=== PATIENT | male | born 1980 | race Caucasian/White ===

== ENCOUNTER 2023-04-22 15:39 | Inpatient (IN) | payer OTHER, SELFPAY ==
[~2023-04-22 15:39] MED LIST: Iopamidol 370 76% 100 ML VIAL ONE
[2023-04-22] MEDS ORDERED: FLU VACC QS2023-24(6MOS UP)/PF 60 MCG/0.5 ML SYRINGE IM ONE (17:45)
[2023-04-22] MEDS ORDERED: Acetaminophen 325 MG TAB PO PRN (20:05)
[2023-04-22 20:38] LABS: #Monocytes 0.1 10x3/uL (0.0-1.1); #Neutrophils 9.7 10x3/uL (1.5-8.4); %Basophils 0.2 % (0.0-2.0); %Lymphocytes 5.5 % (18.0-47.0); %Monocytes 0.6 % (0.0-10.0); %Neutrophils 93.4 % (40.0-75.0); Hematocrit 43.1 % (38.8-50.0); Hemoglobin 14.2 g/dL (13.5-17.5); Mean Corpuscular HGB CONC 32.9 g/dL (32.0-36.0); Mean Corpuscular Hemoglobin 26.2 pg (27.0-33.0); Mean Corpuscular Volume 79.7 fl (81.2-95.1); Mean Platelet Volume 10.9 fl (7.4-10.4); Platelet Count 555 10x3/uL (150-450); RBC Distribution Width 14.5 % (11.5-14.5); Red Blood Cell (RBC) Count 5.41 10x6/uL (4.32-5.72); White Blood Cell (WBC) Count 10.3 10x3/uL (3.5-10.5)
[2023-04-22 20:49] LABS: Anion Gap 15 mmol/L (10-20); BUN (Urea Nitrogen) 16 mg/dL (8.9-20.6); Calc. Creatinine Clearance 92 mL/min (70-130); Calcium 11.5 mg/dL (7.8-10.44); Carbon Dioxide 23 mmol/L (22-29); Chloride 101 mmol/L (98-107); Estimated GFR 112; Glucose 151 mg/dL (70-105); Magnesium 1.4 mg/dL (1.6-2.6); Potassium 3.5 mmol/L (3.5-5.1); Sodium 135 mmol/L (136-145)
[2023-04-22] MEDS ORDERED: Dexamethasone 4 mg/ml Vial SLOW IVP SCH (21:00)
[2023-04-22 21:24] LABS: Legionella Urinary Ag Negative (Negative); Strep pneumo Urine Ag NEGATIVE (NEGATIVE)
[2023-04-22] MEDS: Fluconazole 100 MG TAB PO SCH (22:01)
[2023-04-22] MEDS: Sodium Chloride 0.9% 1,000 ML IV SCH (22:03)
[2023-04-22] MEDS: LevoFLOXacin 750 mg/D5W 750 MG in Premix 1 BAG IVPB SCH (22:04)
[2023-04-22] MEDS ORDERED: Piperacillin/Tazobactam 3.375 GM in Sodium Chloride 0.9% 100 ML IVPB SCH (23:00)
[2023-04-22] MEDS ORDERED: Mometasone/Formoterol 200/5 60 PUFF INH SCH (23:59)
[2023-04-22] MEDS ORDERED: Potassium Chloride 20 MEQ TAB PO SCH (23:59)
[2023-04-22] MEDS ORDERED: Magnesium 2 GM/50 ML(in water) 2 GM in Premix 1 BAG IVPB SCH (23:59)
[2023-04-23] MEDS ORDERED: Piperacillin/Tazobactam 3.375 GM in Sodium Chloride 0.9% 100 ML IVPB SCH (01:00)
[2023-04-23 01:56] LABS: Bilirubin Neg (Negative); Blood, Urine Negative (Negative); Glucose, Urine (Dipstick) Normal (Negative); Ketone, Urine Negative (Negative); Leukocyte 25 (Negative); Nitrite Negative (Negative); Protein, Urine (Dipstick) 30 mg/dl (Neg-Trace); Specific Gravity, Urine 1.025 (1.005-1.030)
[2023-04-23 02:04] LABS: Clarity Clear (Clear)
[2023-04-23 02:08] LABS: RBC/HPF 0-3 HPF (0-3); Squamous Epithelial 0-3 HPF (0-3); WBC/HPF 0-3 HPF (0-3)
[2023-04-23 02:09] LABS: Bacteria/HPF 1+ HPF (None Seen); Triple Phosphate Crystal 1+ HPF (None Seen)
[2023-04-23 03:55] LABS: #Monocytes 0.3 10x3/uL (0.0-1.1); #Neutrophils 8.2 10x3/uL (1.5-8.4); %Basophils 0.1 % (0.0-2.0); %Lymphocytes 7.4 % (18.0-47.0); %Monocytes 2.8 % (0.0-10.0); %Neutrophils 89.3 % (40.0-75.0); Hematocrit 39.4 % (38.8-50.0); Hemoglobin 13.5 g/dL (13.5-17.5); Mean Corpuscular HGB CONC 34.3 g/dL (32.0-36.0); Mean Corpuscular Hemoglobin 27.2 pg (27.0-33.0); Mean Corpuscular Volume 79.3 fl (81.2-95.1); Mean Platelet Volume 10.9 fl (7.4-10.4); Platelet Count 512 10x3/uL (150-450); RBC Distribution Width 14.2 % (11.5-14.5); Red Blood Cell (RBC) Count 4.97 10x6/uL (4.32-5.72); White Blood Cell (WBC) Count 9.2 10x3/uL (3.5-10.5)
[2023-04-23 04:00] LABS: Anion Gap 13 mmol/L (10-20); BUN (Urea Nitrogen) 17 mg/dL (8.9-20.6); Calc. Creatinine Clearance 95 mL/min (70-130); Calcium 10.7 mg/dL (7.8-10.44); Carbon Dioxide 25 mmol/L (22-29); Chloride 101 mmol/L (98-107); Estimated GFR 113; Glucose 126 mg/dL (70-105); Potassium 4.1 mmol/L (3.5-5.1); Sodium 135 mmol/L (136-145)
[2023-04-23] MEDS: Sodium Chloride 0.9% 1,000 ML IV SCH ×5 (04:24→17:24)
[2023-04-23] MEDS: Vancomycin 1 GM in Sodium Chloride 0.9% 250 ML 250 ML IVPB SCH ×2 (04:25→15:23)
[2023-04-23] MEDS: Piperacillin/Tazobactam 3.375 GM in Sodium Chloride 0.9% 100 ML IVPB SCH ×3 (04:25→20:04)
[2023-04-23] MEDS: Mometasone/Formoterol 200/5 60 PUFF INH SCH ×3 (07:58→20:25)
[2023-04-23] MEDS: Enoxaparin 30 MG (0.3 mL) SYRINGE SC SCH (08:19)
[2023-04-23] MEDS ORDERED: Gabapentin 100 MG CAP PO SCH (11:00)
[2023-04-23 11:41] LABS: Phosphorus 2.9 mg/dL (2.3-4.7)
[2023-04-23] MEDS: Clindamycin/D5W 900 MG in Premix 1 BAG IVPB SCH ×2 (12:47→17:23)
[2023-04-23] MEDS: Ventolin HFA Inhaler 60 PUFF INHALER INH SCH ×4 (15:57→23:25)
[2023-04-23] MEDS ORDERED: Sodium Chloride 0.9% 1,000 ML IV SCH (17:00)
[2023-04-23] MEDS: pyridOXINE 50 MG (B6) TAB PO SCH (20:05)
[2023-04-23] MEDS: Dexamethasone 4 mg/ml Vial SLOW IVP SCH (20:05)
[2023-04-23] MEDS: Folic Acid 1 MG TAB PO SCH (20:06)
[2023-04-23] MEDS: Fluconazole 100 MG TAB PO SCH (20:06)
[2023-04-23] MEDS: Cyanocobalamin (Vitamin B-12) 1,000 MCG TAB PO SCH (20:06)
[2023-04-23] MEDS: Multivit, Therapeutic 1 TAB PO SCH (20:06)
[2023-04-23] MEDS: Nystatin 500,000 UNITS/5 ML UDCUP SSW SCH (20:07)
[2023-04-23] MEDS: LevoFLOXacin 750 mg/D5W 750 MG in Premix 1 BAG IVPB SCH (20:07)
[2023-04-23] MEDS: Gabapentin 100 MG CAP PO SCH (20:17)
[2023-04-23] MEDS: Ventolin HFA Inhaler 60 PUFF INHALER INH PRN (20:45)
[2023-04-23] MEDS ORDERED: Dexamethasone 6 MG in Sodium Chloride 0.9% 50 ML IVPB SCH (21:00)
[2023-04-23] MEDS ORDERED: Dexamethasone 4 mg/ml Vial SLOW IVP SCH (21:00)
[2023-04-24] MEDS: Clindamycin/D5W 900 MG in Premix 1 BAG IVPB SCH ×3 (01:09→16:59)
[2023-04-24 02:44] LABS: Vancomycin, Trough 12.7 ug/mL
[2023-04-24 02:46] LABS: Magnesium 1.3 mg/dL (1.6-2.6); Phosphorus 2.7 mg/dL (2.3-4.7)
[2023-04-24 02:48] LABS: ALT (SGPT) 13 U/L (8-55); AST (SGOT) 31 U/L (5-34); Albumin 2.4 g/dL (3.5-5.0); Alkaline Phosphatase 71 U/L (40-110); Anion Gap 12 mmol/L (10-20); BUN (Urea Nitrogen) 19 mg/dL (8.9-20.6); Bilirubin, Total 0.3 mg/dL (0.2-1.2); Calc. Creatinine Clearance 91 mL/min (70-130); Calcium 10.1 mg/dL (7.8-10.44); Carbon Dioxide 24 mmol/L (22-29); Chloride 104 mmol/L (98-107); Estimated GFR 112; Globulin 2.8 g/dL (2.4-3.5); Glucose 142 mg/dL (70-105); Potassium 3.6 mmol/L (3.5-5.1); Protein, Total 5.2 g/dL (6.0-8.3); Sodium 136 mmol/L (136-145)
[2023-04-24 02:53] LABS: #Eosinphils 0.1 10x3/uL (0.0-0.5); #Monocytes 0.3 10x3/uL (0.0-1.1); #Neutrophils 13.6 10x3/uL (1.5-8.4); %Basophils 0.2 % (0.0-2.0); %Eosinophils 0.5 % (0.0-6.0); %Lymphocytes 3.3 % (18.0-47.0); %Monocytes 1.7 % (0.0-10.0); Hematocrit 37.5 % (38.8-50.0); Hemoglobin 12.4 g/dL (13.5-17.5); Mean Corpuscular HGB CONC 33.1 g/dL (32.0-36.0); Mean Corpuscular Hemoglobin 26.1 pg (27.0-33.0); Mean Corpuscular Volume 78.9 fl (81.2-95.1); Mean Platelet Volume 10.5 fl (7.4-10.4); Platelet Count 482 10x3/uL (150-450); RBC Distribution Width 14.6 % (11.5-14.5); Red Blood Cell (RBC) Count 4.75 10x6/uL (4.32-5.72); White Blood Cell (WBC) Count 14.5 10x3/uL (3.5-10.5)
[2023-04-24] MEDS: Ventolin HFA Inhaler 60 PUFF INHALER INH SCH ×6 (03:05→22:17)
[2023-04-24] MEDS: Sodium Chloride 0.9% 1,000 ML IV SCH ×3 (03:19→17:00)
[2023-04-24] MEDS: Ventolin HFA Inhaler 60 PUFF INHALER INH PRN (03:20)
[2023-04-24] MEDS: Vancomycin 1 GM in Sodium Chloride 0.9% 250 ML 250 ML IVPB SCH ×2 (03:21→14:11)
[2023-04-24] MEDS: Piperacillin/Tazobactam 3.375 GM in Sodium Chloride 0.9% 100 ML IVPB SCH ×2 (04:20→13:10)
[2023-04-24] MEDS ORDERED: Magnesium 2 GM/50 ML(in water) 2 GM in Premix 1 BAG IVPB SCH (04:30)
[2023-04-24] MEDS: Mometasone/Formoterol 200/5 60 PUFF INH SCH ×2 (07:54→19:04)
[2023-04-24] MEDS: Dexamethasone 4 mg/ml Vial SLOW IVP SCH ×2 (09:12→20:53)
[2023-04-24] MEDS: Enoxaparin 30 MG (0.3 mL) SYRINGE SC SCH (09:13)
[2023-04-24] MEDS: Gabapentin 100 MG CAP PO SCH ×2 (09:13→20:54)
[2023-04-24] MEDS: Nystatin 500,000 UNITS/5 ML UDCUP SSW SCH ×4 (09:14→20:55)
[2023-04-24 17:36] LABS: %CD4 (Helper/Inducer) 2.7 % (30.8-58.5); Absolute CD4 14 /uL (359-1519); Lymphocytes/Gated Cell Count 0.5 x10E3/uL (0.7-3.1); Total Lymphocyte 6 % (Not Estab.); WBC Total Count 9.5 x10E3/uL (3.4-10.8)
[2023-04-24] MEDS: Cyanocobalamin (Vitamin B-12) 1,000 MCG TAB PO SCH (20:52)
[2023-04-24] MEDS: Folic Acid 1 MG TAB PO SCH (20:52)
[2023-04-24] MEDS: Multivit, Therapeutic 1 TAB PO SCH (20:52)
[2023-04-24] MEDS: Fluconazole 100 MG TAB PO SCH (20:53)
[2023-04-24] MEDS: LevoFLOXacin 750 mg/D5W 750 MG in Premix 1 BAG IVPB SCH (20:54)
[2023-04-24] MEDS: pyridOXINE 50 MG (B6) TAB PO SCH (20:55)
[2023-04-25] MEDS: Clindamycin/D5W 900 MG in Premix 1 BAG IVPB SCH ×3 (00:54→16:43)
[2023-04-25] MEDS: Sodium Chloride 0.9% 1,000 ML IV SCH ×3 (01:49→16:43)
[2023-04-25] MEDS: Ventolin HFA Inhaler 60 PUFF INHALER INH SCH ×6 (02:20→22:53)
[2023-04-25] MEDS: Vancomycin 1 GM in Sodium Chloride 0.9% 250 ML 250 ML IVPB SCH (02:47)
[2023-04-25 03:36] LABS: #Monocytes 0.3 10x3/uL (0.0-1.1); #Neutrophils 14.2 10x3/uL (1.5-8.4); %Basophils 0.1 % (0.0-2.0); %Lymphocytes 3.9 % (18.0-47.0); %Monocytes 1.9 % (0.0-10.0); %Neutrophils 93.6 % (40.0-75.0); Hematocrit 40.2 % (38.8-50.0); Hemoglobin 13.2 g/dL (13.5-17.5); Mean Corpuscular HGB CONC 32.8 g/dL (32.0-36.0); Mean Corpuscular Hemoglobin 25.8 pg (27.0-33.0); Mean Corpuscular Volume 78.5 fl (81.2-95.1); Mean Platelet Volume 10.6 fl (7.4-10.4); Platelet Count 530 10x3/uL (150-450); RBC Distribution Width 14.6 % (11.5-14.5); Red Blood Cell (RBC) Count 5.12 10x6/uL (4.32-5.72); White Blood Cell (WBC) Count 15.2 10x3/uL (3.5-10.5)
[2023-04-25 03:45] LABS: Anion Gap 14 mmol/L (10-20); BUN (Urea Nitrogen) 18 mg/dL (8.9-20.6); Calc. Creatinine Clearance 92 mL/min (70-130); Calcium 10.3 mg/dL (7.8-10.44); Carbon Dioxide 22 mmol/L (22-29); Chloride 106 mmol/L (98-107); Estimated GFR 112; Glucose 126 mg/dL (70-105); Magnesium 1.3 mg/dL (1.6-2.6); Phosphorus 2.8 mg/dL (2.3-4.7); Potassium 3.3 mmol/L (3.5-5.1); Sodium 139 mmol/L (136-145)
[2023-04-25] MEDS: Mometasone/Formoterol 200/5 60 PUFF INH SCH ×2 (06:35→19:07)
[2023-04-25] MEDS ORDERED: Magnesium Sulfate 4 GM in Sodium Chloride 0.9% 250 ML 250 ML IVPB SCH (07:30)
[2023-04-25] MEDS: Potassium Bicarbonate/Cit Ac 20 MEQ TAB PO SCH ×3 (08:02→16:43)
[2023-04-25] MEDS: Dexamethasone 4 mg/ml Vial SLOW IVP SCH ×2 (08:06→20:45)
[2023-04-25] MEDS: Enoxaparin 30 MG (0.3 mL) SYRINGE SC SCH (08:06)
[2023-04-25] MEDS: Nystatin 500,000 UNITS/5 ML UDCUP SSW SCH ×4 (08:07→20:46)
[2023-04-25] MEDS: Gabapentin 100 MG CAP PO SCH ×2 (08:07→20:47)
[2023-04-25] MEDS: Magnesium 2 GM/50 ML(in water) 2 GM in Premix 1 BAG IVPB SCH ×2 (08:09→09:15)
[2023-04-25 14:33] LABS: Vancomycin, Trough 12.8 ug/mL
[2023-04-25] MEDS: pyridOXINE 50 MG (B6) TAB PO SCH (20:46)
[2023-04-25] MEDS: Multivit, Therapeutic 1 TAB PO SCH (20:46)
[2023-04-25] MEDS: Cyanocobalamin (Vitamin B-12) 1,000 MCG TAB PO SCH (20:46)
[2023-04-25] MEDS: Folic Acid 1 MG TAB PO SCH (20:46)
[2023-04-25] MEDS: LevoFLOXacin 750 mg/D5W 750 MG in Premix 1 BAG IVPB SCH (20:47)
[2023-04-25] MEDS: Fluconazole 100 MG TAB PO SCH (20:47)
[2023-04-26] MEDS: Clindamycin/D5W 900 MG in Premix 1 BAG IVPB SCH ×3 (00:13→17:10)
[2023-04-26] MEDS: Sodium Chloride 0.9% 1,000 ML IV SCH ×3 (00:14→17:10)
[2023-04-26] MEDS: Ventolin HFA Inhaler 60 PUFF INHALER INH SCH ×6 (02:50→23:28)
[2023-04-26 03:43] LABS: #Monocytes 0.3 10x3/uL (0.0-1.1); #Neutrophils 13.9 10x3/uL (1.5-8.4); %Basophils 0.1 % (0.0-2.0); %Lymphocytes 2.9 % (18.0-47.0); %Monocytes 1.8 % (0.0-10.0); %Neutrophils 94.7 % (40.0-75.0); Mean Corpuscular HGB CONC 33.3 g/dL (32.0-36.0); Mean Platelet Volume 10.6 fl (7.4-10.4); Platelet Count 488 10x3/uL (150-450); RBC Distribution Width 15.2 % (11.5-14.5); White Blood Cell (WBC) Count 14.7 10x3/uL (3.5-10.5)
[2023-04-26 04:00] LABS: Anion Gap 13 mmol/L (10-20); BUN (Urea Nitrogen) 17 mg/dL (8.9-20.6); Calc. Creatinine Clearance 113 mL/min (70-130); Calcium 9.9 mg/dL (7.8-10.44); Carbon Dioxide 24 mmol/L (22-29); Chloride 104 mmol/L (98-107); Estimated GFR 115; Glucose 132 mg/dL (70-105); Magnesium 1.4 mg/dL (1.6-2.6); Phosphorus 3.4 mg/dL (2.3-4.7); Potassium 3.3 mmol/L (3.5-5.1); Sodium 138 mmol/L (136-145)
[2023-04-26] MEDS: Mometasone/Formoterol 200/5 60 PUFF INH SCH ×2 (07:35→19:37)
[2023-04-26] MEDS: Gabapentin 100 MG CAP PO SCH ×2 (08:24→20:57)
[2023-04-26] MEDS: Nystatin 500,000 UNITS/5 ML UDCUP SSW SCH ×4 (08:25→20:54)
[2023-04-26] MEDS: Dexamethasone 4 mg/ml Vial SLOW IVP SCH ×2 (08:26→20:54)
[2023-04-26] MEDS: Enoxaparin 30 MG (0.3 mL) SYRINGE SC SCH (08:26)
[2023-04-26] MEDS: Magnesium 2 GM/50 ML(in water) 2 GM in Premix 1 BAG IVPB SCH ×2 (10:54→12:50)
[2023-04-26 15:14] LABS: QuantiFERON-TB Gold Plus Indeterminate (Negative)
[2023-04-26] MEDS ORDERED: Magnesium 2 GM/50 ML(in water) 2 GM in Premix 1 BAG IVPB SCH (16:00)
[2023-04-26 16:14] LABS: Coccidioides ABS (DID) Negative (Neg:<1:2); Histoplasma Yeast AB (CF) Negative (Neg:<1:2)
[2023-04-26 17:14] LABS: CMV DNA-PCR Test Positive < 200 IU/mL (Negative)
[2023-04-26] MEDS: Fluconazole 100 MG TAB PO SCH (20:54)
[2023-04-26] MEDS: Multivit, Therapeutic 1 TAB PO SCH (20:54)
[2023-04-26] MEDS: Cyanocobalamin (Vitamin B-12) 1,000 MCG TAB PO SCH (20:54)
[2023-04-26] MEDS: Folic Acid 1 MG TAB PO SCH (20:54)
[2023-04-26] MEDS: pyridOXINE 50 MG (B6) TAB PO SCH (20:54)
[2023-04-26] MEDS ORDERED: Potassium Bicarbonate/Cit Ac 20 MEQ TAB PO SCH (21:00)
[2023-04-27] MEDS: Sodium Chloride 0.9% 1,000 ML IV SCH ×3 (01:22→17:27)
[2023-04-27] MEDS: Clindamycin/D5W 900 MG in Premix 1 BAG IVPB SCH ×3 (01:22→17:27)
[2023-04-27] MEDS: Ventolin HFA Inhaler 60 PUFF INHALER INH SCH ×6 (02:34→22:50)
[2023-04-27 03:50] LABS: #Monocytes 0.2 10x3/uL (0.0-1.1); #Neutrophils 11.3 10x3/uL (1.5-8.4); %Basophils 0.1 % (0.0-2.0); %Eosinophils 0.1 % (0.0-6.0); %Lymphocytes 3.9 % (18.0-47.0); %Neutrophils 93.2 % (40.0-75.0); Hematocrit 41.2 % (38.8-50.0); Hemoglobin 13.6 g/dL (13.5-17.5); Mean Corpuscular Hemoglobin 26.3 pg (27.0-33.0); Mean Corpuscular Volume 79.7 fl (81.2-95.1); Mean Platelet Volume 10.8 fl (7.4-10.4); Platelet Count 499 10x3/uL (150-450); RBC Distribution Width 15.6 % (11.5-14.5); Red Blood Cell (RBC) Count 5.17 10x6/uL (4.32-5.72); White Blood Cell (WBC) Count 12.1 10x3/uL (3.5-10.5)
[2023-04-27 04:04] LABS: Anion Gap 13 mmol/L (10-20); BUN (Urea Nitrogen) 19 mg/dL (8.9-20.6); Calc. Creatinine Clearance 110 mL/min (70-130); Calcium 9.6 mg/dL (7.8-10.44); Carbon Dioxide 24 mmol/L (22-29); Chloride 105 mmol/L (98-107); Estimated GFR 114; Glucose 121 mg/dL (70-105); Magnesium 1.7 mg/dL (1.6-2.6); Phosphorus 3.4 mg/dL (2.3-4.7); Potassium 3.4 mmol/L (3.5-5.1); Sodium 139 mmol/L (136-145)
[2023-04-27] MEDS: Mometasone/Formoterol 200/5 60 PUFF INH SCH ×2 (06:40→20:14)
[2023-04-27] MEDS: Enoxaparin 30 MG (0.3 mL) SYRINGE SC SCH (07:59)
[2023-04-27] MEDS: Gabapentin 100 MG CAP PO SCH ×2 (08:00→21:50)
[2023-04-27] MEDS: Nystatin 500,000 UNITS/5 ML UDCUP SSW SCH ×4 (08:00→21:48)
[2023-04-27] MEDS: Dexamethasone 4 mg/ml Vial SLOW IVP SCH ×2 (08:01→21:57)
[2023-04-27] MEDS ORDERED: Magnesium 2 GM/50 ML(in water) 2 GM in Premix 1 BAG IVPB SCH (10:30)
[2023-04-27] MEDS: Potassium Bicarbonate/Cit Ac 20 MEQ TAB PO SCH ×2 (12:33→17:28)
[2023-04-27 12:37] LABS: G-6-PD,Quant 294 (127-427)
[2023-04-27] MEDS ORDERED: Loratadine 10 MG TAB PO SCH (21:00)
[2023-04-27] MEDS: Multivit, Therapeutic 1 TAB PO SCH (21:47)
[2023-04-27] MEDS: Folic Acid 1 MG TAB PO SCH (21:47)
[2023-04-27] MEDS: Famotidine 20 MG TAB PO SCH (21:47)
[2023-04-27] MEDS: Cyanocobalamin (Vitamin B-12) 1,000 MCG TAB PO SCH (21:48)
[2023-04-27] MEDS: pyridOXINE 50 MG (B6) TAB PO SCH (21:49)
[2023-04-27] MEDS: Fluconazole 100 MG TAB PO SCH (21:49)
[2023-04-28] MEDS: Clindamycin/D5W 900 MG in Premix 1 BAG IVPB SCH ×3 (00:37→16:31)
[2023-04-28] MEDS: Ventolin HFA Inhaler 60 PUFF INHALER INH SCH ×6 (02:55→22:44)
[2023-04-28 02:57] LABS: #Monocytes 0.4 10x3/uL (0.0-1.1); #Neutrophils 13.8 10x3/uL (1.5-8.4); %Basophils 0.1 % (0.0-2.0); %Eosinophils 0.3 % (0.0-6.0); %Lymphocytes 4.2 % (18.0-47.0); %Monocytes 2.4 % (0.0-10.0); %Neutrophils 92.3 % (40.0-75.0); Hematocrit 40.3 % (38.8-50.0); Hemoglobin 13.2 g/dL (13.5-17.5); Mean Corpuscular HGB CONC 32.8 g/dL (32.0-36.0); Mean Corpuscular Hemoglobin 25.9 pg (27.0-33.0); Mean Platelet Volume 10.8 fl (7.4-10.4); Platelet Count 484 10x3/uL (150-450); RBC Distribution Width 15.4 % (11.5-14.5); White Blood Cell (WBC) Count 14.9 10x3/uL (3.5-10.5)
[2023-04-28 04:20] LABS: Anion Gap 14 mmol/L (10-20); BUN (Urea Nitrogen) 21 mg/dL (8.9-20.6); Calc. Creatinine Clearance 114 mL/min (70-130); Calcium 10.4 mg/dL (7.8-10.44); Carbon Dioxide 22 mmol/L (22-29); Chloride 106 mmol/L (98-107); Estimated GFR 115; Glucose 120 mg/dL (70-105); Magnesium 1.3 mg/dL (1.6-2.6); Potassium 3.7 mmol/L (3.5-5.1); Sodium 138 mmol/L (136-145)
[2023-04-28] MEDS: Mometasone/Formoterol 200/5 60 PUFF INH SCH ×2 (06:50→19:20)
[2023-04-28] MEDS: Gabapentin 100 MG CAP PO SCH ×2 (08:39→20:39)
[2023-04-28] MEDS: Famotidine 20 MG TAB PO SCH ×2 (08:40→20:39)
[2023-04-28] MEDS: Enoxaparin 30 MG (0.3 mL) SYRINGE SC SCH (08:40)
[2023-04-28] MEDS: Dexamethasone 4 mg/ml Vial SLOW IVP SCH ×2 (08:40→20:38)
[2023-04-28] MEDS: Nystatin 500,000 UNITS/5 ML UDCUP SSW SCH ×4 (08:41→20:38)
[2023-04-28 13:28] LABS: Campy jejuni + coli by PCR Negative (Negative); STEC Shiga Toxin 1+2 Negative (Negative); Salmonella spp. by PCR Negative (Negative); Shigella spp + EIEC by PCR Negative (Negative)
[2023-04-28] MEDS: Sodium Chloride 0.9% 1,000 ML IV SCH (14:36)
[2023-04-28] MEDS ORDERED: SMX/TMP 800-160mg/20 ML UDCUP PO SCH ×6 (15:30→20:30)
[2023-04-28] MEDS: Fluconazole 100 MG TAB PO SCH (20:39)
[2023-04-28] MEDS: Cyanocobalamin (Vitamin B-12) 1,000 MCG TAB PO SCH (20:39)
[2023-04-28] MEDS: Folic Acid 1 MG TAB PO SCH (20:40)
[2023-04-28] MEDS: Multivit, Therapeutic 1 TAB PO SCH (20:40)
[2023-04-28] MEDS: pyridOXINE 50 MG (B6) TAB PO SCH (20:46)
[2023-04-28] MEDS: TRIMETHOPRIM IVPB SCH (22:40)
[2023-04-28] MEDS: WATER IVPB SCH (22:40)
[2023-04-28] MEDS: SULFAMETHOXAZOLE IVPB SCH (22:40)
[2023-04-28] MEDS: DEXTROSE 5% IVPB SCH (22:40)
[2023-04-29] MEDS: Clindamycin/D5W 900 MG in Premix 1 BAG IVPB SCH ×3 (01:24→16:03)
[2023-04-29] MEDS: Ventolin HFA Inhaler 60 PUFF INHALER INH SCH ×6 (02:44→22:32)
[2023-04-29] MEDS: SULFAMETHOXAZOLE IVPB SCH ×3 (05:44→22:04)
[2023-04-29] MEDS: DEXTROSE 5% IVPB SCH ×3 (05:44→22:04)
[2023-04-29] MEDS: WATER IVPB SCH ×3 (05:44→22:04)
[2023-04-29] MEDS: TRIMETHOPRIM IVPB SCH ×3 (05:44→22:04)
[2023-04-29] MEDS: Enoxaparin 40 MG (0.4 mL) SYRINGE SC SCH (08:12)
[2023-04-29] MEDS: Dexamethasone 4 mg/ml Vial SLOW IVP SCH ×2 (08:12→20:08)
[2023-04-29] MEDS: Famotidine 20 MG TAB PO SCH ×2 (08:12→20:11)
[2023-04-29] MEDS: Nystatin 500,000 UNITS/5 ML UDCUP SSW SCH ×4 (08:13→20:08)
[2023-04-29] MEDS: Gabapentin 100 MG CAP PO SCH ×2 (08:13→20:11)
[2023-04-29] MEDS: Mometasone/Formoterol 200/5 60 PUFF INH SCH ×2 (08:34→20:50)
[2023-04-29] MEDS: Sodium Chloride 0.9% 1,000 ML IV SCH (08:40)
[2023-04-29] MEDS: Magnesium 2 GM/50 ML(in water) 2 GM in Premix 1 BAG IVPB SCH ×2 (09:38→10:48)
[2023-04-29] MEDS ORDERED: Magnesium 2 GM/50 ML(in water) 2 GM in Premix 1 BAG IVPB SCH (17:00)
[2023-04-29] MEDS: Fluconazole 100 MG TAB PO SCH (20:10)
[2023-04-29] MEDS: Folic Acid 1 MG TAB PO SCH (20:11)
[2023-04-29] MEDS: Cyanocobalamin (Vitamin B-12) 1,000 MCG TAB PO SCH (20:11)
[2023-04-29] MEDS: pyridOXINE 50 MG (B6) TAB PO SCH (20:12)
[2023-04-29] MEDS: Multivit, Therapeutic 1 TAB PO SCH (20:12)
[2023-04-30] MEDS: Clindamycin/D5W 900 MG in Premix 1 BAG IVPB SCH ×2 (00:34→08:39)
[2023-04-30] MEDS: Ventolin HFA Inhaler 60 PUFF INHALER INH SCH ×6 (02:00→23:36)
[2023-04-30 03:28] LABS: #Monocytes 0.4 10x3/uL (0.0-1.1); #Neutrophils 12.2 10x3/uL (1.5-8.4); %Basophils 0.2 % (0.0-2.0); %Eosinophils 0.1 % (0.0-6.0); %Lymphocytes 4.5 % (18.0-47.0); %Neutrophils 90.9 % (40.0-75.0); Hematocrit 38.1 % (38.8-50.0); Hemoglobin 12.6 g/dL (13.5-17.5); Mean Corpuscular HGB CONC 33.1 g/dL (32.0-36.0); Mean Corpuscular Hemoglobin 25.8 pg (27.0-33.0); Mean Corpuscular Volume 78.1 fl (81.2-95.1); Mean Platelet Volume 10.4 fl (7.4-10.4); Platelet Count 517 10x3/uL (150-450); RBC Distribution Width 15.9 % (11.5-14.5); Red Blood Cell (RBC) Count 4.88 10x6/uL (4.32-5.72); White Blood Cell (WBC) Count 13.4 10x3/uL (3.5-10.5)
[2023-04-30 03:39] LABS: ALT (SGPT) 23 U/L (8-55); AST (SGOT) 27 U/L (5-34); Albumin 2.6 g/dL (3.5-5.0); Alkaline Phosphatase 77 U/L (40-110); Anion Gap 14 mmol/L (10-20); BUN (Urea Nitrogen) 24 mg/dL (8.9-20.6); Bilirubin, Total 0.2 mg/dL (0.2-1.2); Calc. Creatinine Clearance 102 mL/min (70-130); Calcium 9.9 mg/dL (7.8-10.44); Carbon Dioxide 21 mmol/L (22-29); Chloride 104 mmol/L (98-107); Estimated GFR 111; Globulin 2.8 g/dL (2.4-3.5); Glucose 122 mg/dL (70-105); Magnesium 1.6 mg/dL (1.6-2.6); Phosphorus 3.4 mg/dL (2.3-4.7); Potassium 4.2 mmol/L (3.5-5.1); Protein, Total 5.4 g/dL (6.0-8.3); Sodium 135 mmol/L (136-145)
[2023-04-30] MEDS: Sodium Chloride 0.9% 1,000 ML IV SCH (04:53)
[2023-04-30] MEDS: TRIMETHOPRIM IVPB SCH ×3 (05:08→22:30)
[2023-04-30] MEDS: WATER IVPB SCH ×3 (05:08→22:30)
[2023-04-30] MEDS: SULFAMETHOXAZOLE IVPB SCH ×3 (05:08→22:30)
[2023-04-30] MEDS: DEXTROSE 5% IVPB SCH ×3 (05:08→22:30)
[2023-04-30] MEDS: Mometasone/Formoterol 200/5 60 PUFF INH SCH ×2 (07:30→19:17)
[2023-04-30] MEDS: Famotidine 20 MG TAB PO SCH ×2 (08:31→20:15)
[2023-04-30] MEDS: Enoxaparin 40 MG (0.4 mL) SYRINGE SC SCH (08:31)
[2023-04-30] MEDS: Dexamethasone 4 mg/ml Vial SLOW IVP SCH ×2 (08:32→20:13)
[2023-04-30] MEDS: Nystatin 500,000 UNITS/5 ML UDCUP SSW SCH ×4 (08:38→20:13)
[2023-04-30] MEDS: Gabapentin 100 MG CAP PO SCH ×2 (08:38→20:14)
[2023-04-30] MEDS: Ondansetron PF 4 MG/2 ML Vial IVP PRN (17:01)
[2023-04-30] MEDS: Multivit, Therapeutic 1 TAB PO SCH (20:14)
[2023-04-30] MEDS: pyridOXINE 50 MG (B6) TAB PO SCH (20:14)
[2023-04-30] MEDS: Folic Acid 1 MG TAB PO SCH (20:15)
[2023-04-30] MEDS: Fluconazole 100 MG TAB PO SCH (20:15)
[2023-04-30] MEDS: Cyanocobalamin (Vitamin B-12) 1,000 MCG TAB PO SCH (20:15)
[2023-05-01] MEDS: Sodium Chloride 0.9% 1,000 ML IV SCH ×2 (00:02→20:37)
[2023-05-01] MEDS: Ventolin HFA Inhaler 60 PUFF INHALER INH SCH ×6 (02:50→21:56)
[2023-05-01 03:56] LABS: Anion Gap 13 mmol/L (10-20); BUN (Urea Nitrogen) 29 mg/dL (8.9-20.6); Calc. Creatinine Clearance 100 mL/min (70-130); Calcium 9.6 mg/dL (7.8-10.44); Carbon Dioxide 21 mmol/L (22-29); Chloride 101 mmol/L (98-107); Estimated GFR 110; Glucose 121 mg/dL (70-105); Magnesium 1.5 mg/dL (1.6-2.6); Potassium 4.6 mmol/L (3.5-5.1); Sodium 130 mmol/L (136-145)
[2023-05-01 03:57] LABS: #Eosinphils 0.1 10x3/uL (0.0-0.5); #Monocytes 0.5 10x3/uL (0.0-1.1); %Basophils 0.3 % (0.0-2.0); %Eosinophils 0.4 % (0.0-6.0); %Lymphocytes 5.7 % (18.0-47.0); %Monocytes 3.8 % (0.0-10.0); %Neutrophils 88.7 % (40.0-75.0); Hematocrit 39.2 % (38.8-50.0); Hemoglobin 13.3 g/dL (13.5-17.5); Mean Corpuscular HGB CONC 33.9 g/dL (32.0-36.0); Mean Corpuscular Hemoglobin 26.4 pg (27.0-33.0); Mean Corpuscular Volume 77.8 fl (81.2-95.1); Mean Platelet Volume 10.2 fl (7.4-10.4); Platelet Count 521 10x3/uL (150-450); RBC Distribution Width 16.1 % (11.5-14.5); Red Blood Cell (RBC) Count 5.04 10x6/uL (4.32-5.72); White Blood Cell (WBC) Count 12.4 10x3/uL (3.5-10.5)
[2023-05-01] MEDS ORDERED: Magnesium Sulfate/D5W 1 GM in Premix 1 BAG IVPB SCH (05:15)
[2023-05-01] MEDS: WATER IVPB SCH ×3 (05:39→22:36)
[2023-05-01] MEDS: DEXTROSE 5% IVPB SCH ×3 (05:39→22:36)
[2023-05-01] MEDS: TRIMETHOPRIM IVPB SCH ×3 (05:39→22:36)
[2023-05-01] MEDS: SULFAMETHOXAZOLE IVPB SCH ×3 (05:39→22:36)
[2023-05-01] MEDS: Mometasone/Formoterol 200/5 60 PUFF INH SCH ×2 (06:45→19:00)
[2023-05-01] MEDS: Ondansetron PF 4 MG/2 ML Vial IVP PRN ×2 (08:01→13:02)
[2023-05-01] MEDS: Dexamethasone 4 mg/ml Vial SLOW IVP SCH ×2 (08:12→20:35)
[2023-05-01] MEDS: Gabapentin 100 MG CAP PO SCH ×2 (08:13→20:36)
[2023-05-01] MEDS: Famotidine 20 MG TAB PO SCH ×2 (08:13→20:36)
[2023-05-01] MEDS: Enoxaparin 40 MG (0.4 mL) SYRINGE SC SCH (08:13)
[2023-05-01] MEDS: Nystatin 500,000 UNITS/5 ML UDCUP SSW SCH ×4 (08:13→20:37)
[2023-05-01 13:15] LABS: Reference Lab Name LABCORP
[2023-05-01] MEDS: Cyanocobalamin (Vitamin B-12) 1,000 MCG TAB PO SCH (20:35)
[2023-05-01] MEDS: Fluconazole 100 MG TAB PO SCH (20:36)
[2023-05-01] MEDS: Folic Acid 1 MG TAB PO SCH (20:36)
[2023-05-01] MEDS: Multivit, Therapeutic 1 TAB PO SCH (20:36)
[2023-05-01] MEDS: pyridOXINE 50 MG (B6) TAB PO SCH (20:37)
[2023-05-02] MEDS: Ventolin HFA Inhaler 60 PUFF INHALER INH SCH ×6 (02:49→22:34)
[2023-05-02] MEDS: TRIMETHOPRIM IVPB SCH ×3 (05:31→22:07)
[2023-05-02] MEDS: WATER IVPB SCH ×3 (05:31→22:07)
[2023-05-02] MEDS: DEXTROSE 5% IVPB SCH ×3 (05:31→22:07)
[2023-05-02] MEDS: SULFAMETHOXAZOLE IVPB SCH ×3 (05:31→22:07)
[2023-05-02] MEDS: Mometasone/Formoterol 200/5 60 PUFF INH SCH ×2 (07:26→19:29)
[2023-05-02] MEDS: Nystatin 500,000 UNITS/5 ML UDCUP SSW SCH ×4 (08:24→20:20)
[2023-05-02] MEDS: Enoxaparin 40 MG (0.4 mL) SYRINGE SC SCH (08:24)
[2023-05-02] MEDS: Dexamethasone 4 mg/ml Vial SLOW IVP SCH (08:25)
[2023-05-02] MEDS: Gabapentin 100 MG CAP PO SCH ×2 (08:25→20:21)
[2023-05-02] MEDS: Famotidine 20 MG TAB PO SCH ×2 (08:25→20:21)
[2023-05-02] MEDS: Ondansetron PF 4 MG/2 ML Vial IVP PRN ×2 (10:26→16:33)
[2023-05-02] MEDS: Sodium Chloride 0.9% 1,000 ML IV SCH (16:34)
[2023-05-02] MEDS: Cyanocobalamin (Vitamin B-12) 1,000 MCG TAB PO SCH (20:21)
[2023-05-02] MEDS: Fluconazole 100 MG TAB PO SCH (20:21)
[2023-05-02] MEDS: predniSONE 20 MG TAB PO SCH (20:21)
[2023-05-02] MEDS: Multivit, Therapeutic 1 TAB PO SCH (20:21)
[2023-05-02] MEDS: Folic Acid 1 MG TAB PO SCH (20:21)
[2023-05-02] MEDS: pyridOXINE 50 MG (B6) TAB PO SCH (20:21)
[2023-05-03] MEDS: Ventolin HFA Inhaler 60 PUFF INHALER INH SCH ×6 (02:46→23:00)
[2023-05-03 04:40] LABS: Anion Gap 15 mmol/L (10-20); BUN (Urea Nitrogen) 35 mg/dL (8.9-20.6); Calc. Creatinine Clearance 80 mL/min (70-130); Calcium 9.3 mg/dL (7.8-10.44); Carbon Dioxide 18 mmol/L (22-29); Chloride 98 mmol/L (98-107); Estimated GFR 94; Glucose 127 mg/dL (70-105); Potassium 4.9 mmol/L (3.5-5.1); Sodium 126 mmol/L (136-145)
[2023-05-03 04:42] LABS: #Basophils 0.1 10x3/uL (0.0-0.2); #Eosinphils 0.1 10x3/uL (0.0-0.5); #Monocytes 0.4 10x3/uL (0.0-1.1); #Neutrophils 14.8 10x3/uL (1.5-8.4); %Basophils 0.3 % (0.0-2.0); %Eosinophils 0.7 % (0.0-6.0); %Lymphocytes 4.4 % (18.0-47.0); %Monocytes 2.5 % (0.0-10.0); %Neutrophils 91.1 % (40.0-75.0); Hematocrit 40.2 % (38.8-50.0); Hemoglobin 13.6 g/dL (13.5-17.5); Mean Corpuscular HGB CONC 33.8 g/dL (32.0-36.0); Mean Corpuscular Volume 76.9 fl (81.2-95.1); Mean Platelet Volume 9.8 fl (7.4-10.4); Platelet Count 572 10x3/uL (150-450); RBC Distribution Width 15.9 % (11.5-14.5); Red Blood Cell (RBC) Count 5.23 10x6/uL (4.32-5.72); White Blood Cell (WBC) Count 16.2 10x3/uL (3.5-10.5)
[2023-05-03] MEDS: TRIMETHOPRIM IVPB SCH ×3 (05:00→20:57)
[2023-05-03] MEDS: WATER IVPB SCH ×3 (05:00→20:57)
[2023-05-03] MEDS: SULFAMETHOXAZOLE IVPB SCH ×3 (05:00→20:57)
[2023-05-03] MEDS: DEXTROSE 5% IVPB SCH ×3 (05:00→20:57)
[2023-05-03] MEDS: Mometasone/Formoterol 200/5 60 PUFF INH SCH ×2 (07:44→19:47)
[2023-05-03] MEDS: Gabapentin 100 MG CAP PO SCH ×2 (09:33→20:40)
[2023-05-03] MEDS: Famotidine 20 MG TAB PO SCH ×2 (09:34→20:39)
[2023-05-03] MEDS: Nystatin 500,000 UNITS/5 ML UDCUP SSW SCH ×4 (09:35→20:39)
[2023-05-03] MEDS: predniSONE 20 MG TAB PO SCH ×2 (09:35→20:40)
[2023-05-03] MEDS: Enoxaparin 40 MG (0.4 mL) SYRINGE SC SCH (09:35)
[2023-05-03] MEDS: Sodium Chloride 0.9% 1,000 ML IV SCH (12:14)
[2023-05-03] MEDS ORDERED: Magnesium 2 GM/50 ML(in water) 2 GM in Premix 1 BAG IVPB SCH (18:15)
[2023-05-03] MEDS: pyridOXINE 50 MG (B6) TAB PO SCH (20:40)
[2023-05-03] MEDS: Folic Acid 1 MG TAB PO SCH (20:40)
[2023-05-03] MEDS: Multivit, Therapeutic 1 TAB PO SCH (20:40)
[2023-05-03] MEDS: Cyanocobalamin (Vitamin B-12) 1,000 MCG TAB PO SCH (20:40)
[2023-05-03] MEDS: Ondansetron PF 4 MG/2 ML Vial IVP PRN (20:53)
[2023-05-04] MEDS: Ventolin HFA Inhaler 60 PUFF INHALER INH SCH ×6 (02:22→22:50)
[2023-05-04 05:03] LABS: #Basophils 0.1 10x3/uL (0.0-0.2); #Monocytes 0.3 10x3/uL (0.0-1.1); #Neutrophils 13.1 10x3/uL (1.5-8.4); %Basophils 0.4 % (0.0-2.0); %Eosinophils 0.1 % (0.0-6.0); %Lymphocytes 3.7 % (18.0-47.0); %Monocytes 1.8 % (0.0-10.0); %Neutrophils 92.8 % (40.0-75.0); Hematocrit 39.4 % (38.8-50.0); Hemoglobin 13.5 g/dL (13.5-17.5); Mean Corpuscular HGB CONC 34.3 g/dL (32.0-36.0); Mean Corpuscular Hemoglobin 26.6 pg (27.0-33.0); Mean Corpuscular Volume 77.6 fl (81.2-95.1); Mean Platelet Volume 9.9 fl (7.4-10.4); Platelet Count 517 10x3/uL (150-450); RBC Distribution Width 15.8 % (11.5-14.5); Red Blood Cell (RBC) Count 5.08 10x6/uL (4.32-5.72); White Blood Cell (WBC) Count 14.2 10x3/uL (3.5-10.5)
[2023-05-04] MEDS: DEXTROSE 5% IVPB SCH ×3 (05:08→21:42)
[2023-05-04] MEDS: SULFAMETHOXAZOLE IVPB SCH ×3 (05:08→21:42)
[2023-05-04] MEDS: WATER IVPB SCH ×3 (05:08→21:42)
[2023-05-04] MEDS: TRIMETHOPRIM IVPB SCH ×3 (05:08→21:42)
[2023-05-04 05:13] LABS: Anion Gap 13 mmol/L (10-20); BUN (Urea Nitrogen) 31 mg/dL (8.9-20.6); Calc. Creatinine Clearance 86 mL/min (70-130); Calcium 9.1 mg/dL (7.8-10.44); Carbon Dioxide 20 mmol/L (22-29); Chloride 97 mmol/L (98-107); Estimated GFR 102; Glucose 102 mg/dL (70-105); Potassium 4.8 mmol/L (3.5-5.1); Sodium 125 mmol/L (136-145)
[2023-05-04] MEDS: Mometasone/Formoterol 200/5 60 PUFF INH SCH ×2 (07:04→20:10)
[2023-05-04] MEDS: Enoxaparin 40 MG (0.4 mL) SYRINGE SC SCH (07:43)
[2023-05-04] MEDS: predniSONE 20 MG TAB PO SCH ×2 (07:44→20:20)
[2023-05-04] MEDS: Famotidine 20 MG TAB PO SCH ×2 (07:44→20:20)
[2023-05-04] MEDS: Gabapentin 100 MG CAP PO SCH ×2 (07:44→20:20)
[2023-05-04] MEDS: Nystatin 500,000 UNITS/5 ML UDCUP SSW SCH ×4 (07:44→20:20)
[2023-05-04] MEDS ORDERED: Sodium Chloride 1 GM TAB PO SCH (10:00)
[2023-05-04] MEDS: Sodium Chloride 1 GM TAB PO SCH ×2 (16:39→20:20)
[2023-05-04] MEDS: Cyanocobalamin (Vitamin B-12) 1,000 MCG TAB PO SCH (20:20)
[2023-05-04] MEDS: Multivit, Therapeutic 1 TAB PO SCH (20:20)
[2023-05-04] MEDS: Folic Acid 1 MG TAB PO SCH (20:20)
[2023-05-04] MEDS: pyridOXINE 50 MG (B6) TAB PO SCH (20:20)
[2023-05-04 21:08] LABS: LOG10 HIV-1 RNA 4.324 (.)
[2023-05-05] MEDS ORDERED: diphenhydrAMINE 25 MG CAP PO SCH (00:45)
[2023-05-05] MEDS: Benzonatate 100 MG CAP PO PRN (00:48)
[2023-05-05] MEDS: Ventolin HFA Inhaler 60 PUFF INHALER INH SCH ×6 (03:05→23:08)
[2023-05-05] MEDS: TRIMETHOPRIM IVPB SCH ×3 (05:03→21:09)
[2023-05-05] MEDS: WATER IVPB SCH ×3 (05:03→21:09)
[2023-05-05] MEDS: SULFAMETHOXAZOLE IVPB SCH ×3 (05:03→21:09)
[2023-05-05] MEDS: DEXTROSE 5% IVPB SCH ×3 (05:03→21:09)
[2023-05-05 06:14] LABS: #Monocytes 0.2 10x3/uL (0.0-1.1); #Neutrophils 12.8 10x3/uL (1.5-8.4); %Basophils 0.2 % (0.0-2.0); %Eosinophils 0.2 % (0.0-6.0); %Lymphocytes 4.3 % (18.0-47.0); %Monocytes 1.4 % (0.0-10.0); %Neutrophils 92.7 % (40.0-75.0); Hematocrit 37.3 % (38.8-50.0); Hemoglobin 12.7 g/dL (13.5-17.5); Mean Corpuscular Hemoglobin 26.5 pg (27.0-33.0); Mean Corpuscular Volume 77.9 fl (81.2-95.1); Mean Platelet Volume 10.3 fl (7.4-10.4); Platelet Count 494 10x3/uL (150-450); RBC Distribution Width 15.9 % (11.5-14.5); Red Blood Cell (RBC) Count 4.79 10x6/uL (4.32-5.72); White Blood Cell (WBC) Count 13.8 10x3/uL (3.5-10.5)
[2023-05-05 06:26] LABS: Anion Gap 12 mmol/L (10-20); BUN (Urea Nitrogen) 26 mg/dL (8.9-20.6); Calc. Creatinine Clearance 96 mL/min (70-130); Calcium 9.3 mg/dL (7.8-10.44); Carbon Dioxide 21 mmol/L (22-29); Chloride 97 mmol/L (98-107); Estimated GFR 111; Glucose 88 mg/dL (70-105); Magnesium 1.3 mg/dL (1.6-2.6); Potassium 4.9 mmol/L (3.5-5.1); Sodium 125 mmol/L (136-145)
[2023-05-05] MEDS: Mometasone/Formoterol 200/5 60 PUFF INH SCH ×2 (07:45→18:45)
[2023-05-05] MEDS: Gabapentin 100 MG CAP PO SCH ×2 (07:54→21:06)
[2023-05-05] MEDS: Sodium Chloride 1 GM TAB PO SCH ×3 (07:55→21:08)
[2023-05-05] MEDS: Enoxaparin 40 MG (0.4 mL) SYRINGE SC SCH (07:55)
[2023-05-05] MEDS: Famotidine 20 MG TAB PO SCH ×2 (07:55→21:08)
[2023-05-05] MEDS: predniSONE 20 MG TAB PO SCH ×2 (07:55→21:08)
[2023-05-05] MEDS: Nystatin 500,000 UNITS/5 ML UDCUP SSW SCH ×4 (08:43→21:06)
[2023-05-05] MEDS ORDERED: predniSONE 20 MG TAB PO SCH (10:45)
[2023-05-05] MEDS: Magnesium 2 GM/50 ML(in water) 2 GM in Premix 1 BAG IVPB SCH ×3 (11:11→14:02)
[2023-05-05] MEDS ORDERED: Emtricitabine/Tenofovir 200-300 MG TAB PO SCH (12:00)
[2023-05-05] MEDS ORDERED: Lopinavir/Ritonavir 200-50mg TAB PO SCH (12:00)
[2023-05-05] MEDS: Ondansetron PF 4 MG/2 ML Vial IVP PRN (12:47)
[2023-05-05 20:06] LABS: Potassium, Urine 31.1 mmol/L
[2023-05-05] MEDS: Folic Acid 1 MG TAB PO SCH (21:06)
[2023-05-05] MEDS: Cyanocobalamin (Vitamin B-12) 1,000 MCG TAB PO SCH (21:08)
[2023-05-05] MEDS: Multivit, Therapeutic 1 TAB PO SCH (21:08)
[2023-05-05] MEDS: pyridOXINE 50 MG (B6) TAB PO SCH (21:08)
[2023-05-05] MEDS: Lopinavir/Ritonavir 200-50mg TAB PO SCH (21:09)
[2023-05-06] MEDS: Ventolin HFA Inhaler 60 PUFF INHALER INH SCH ×6 (03:26→22:51)
[2023-05-06] MEDS: SULFAMETHOXAZOLE IVPB SCH ×3 (05:17→21:28)
[2023-05-06] MEDS: DEXTROSE 5% IVPB SCH ×3 (05:17→21:28)
[2023-05-06] MEDS: WATER IVPB SCH ×3 (05:17→21:28)
[2023-05-06] MEDS: TRIMETHOPRIM IVPB SCH ×3 (05:17→21:28)
[2023-05-06] MEDS: Mometasone/Formoterol 200/5 60 PUFF INH SCH ×2 (07:01→18:56)
[2023-05-06] MEDS: Famotidine 20 MG TAB PO SCH ×2 (07:35→20:02)
[2023-05-06] MEDS: Lopinavir/Ritonavir 200-50mg TAB PO SCH ×2 (07:35→21:29)
[2023-05-06] MEDS: predniSONE 20 MG TAB PO SCH ×2 (07:35→20:02)
[2023-05-06] MEDS: Emtricitabine/Tenofovir 200-300 MG TAB PO SCH (07:35)
[2023-05-06] MEDS: Enoxaparin 40 MG (0.4 mL) SYRINGE SC SCH (07:36)
[2023-05-06] MEDS: Sodium Chloride 1 GM TAB PO SCH ×3 (07:36→20:03)
[2023-05-06] MEDS: Nystatin 500,000 UNITS/5 ML UDCUP SSW SCH ×4 (08:45→20:02)
[2023-05-06] MEDS: Gabapentin 100 MG CAP PO SCH ×2 (08:45→20:03)
[2023-05-06 09:31] LABS: #Monocytes 0.2 10x3/uL (0.0-1.1); #Neutrophils 8.5 10x3/uL (1.5-8.4); %Basophils 0.2 % (0.0-2.0); %Lymphocytes 5.2 % (18.0-47.0); %Monocytes 2.6 % (0.0-10.0); %Neutrophils 90.7 % (40.0-75.0); Hematocrit 35.3 % (38.8-50.0); Hemoglobin 12.2 g/dL (13.5-17.5); Mean Corpuscular HGB CONC 34.6 g/dL (32.0-36.0); Mean Corpuscular Hemoglobin 26.9 pg (27.0-33.0); Mean Corpuscular Volume 77.9 fl (81.2-95.1); Mean Platelet Volume 9.7 fl (7.4-10.4); Platelet Count 472 10x3/uL (150-450); RBC Distribution Width 15.9 % (11.5-14.5); Red Blood Cell (RBC) Count 4.53 10x6/uL (4.32-5.72); White Blood Cell (WBC) Count 9.4 10x3/uL (3.5-10.5)
[2023-05-06 09:59] LABS: Phosphorus 3.1 mg/dL (2.3-4.7)
[2023-05-06 10:01] LABS: Anion Gap 13 mmol/L (10-20); BUN (Urea Nitrogen) 25 mg/dL (8.9-20.6); Calc. Creatinine Clearance 94 mL/min (70-130); Calcium 8.7 mg/dL (7.8-10.44); Carbon Dioxide 21 mmol/L (22-29); Chloride 96 mmol/L (98-107); Estimated GFR 110; Glucose 123 mg/dL (70-105); Magnesium 1.6 mg/dL (1.6-2.6); Sodium 126 mmol/L (136-145)
[2023-05-06 10:25] LABS: Reference Lab Name LABCORP
[2023-05-06] MEDS: Multivit, Therapeutic 1 TAB PO SCH (20:02)
[2023-05-06] MEDS: Folic Acid 1 MG TAB PO SCH (20:02)
[2023-05-06] MEDS: Cyanocobalamin (Vitamin B-12) 1,000 MCG TAB PO SCH (20:03)
[2023-05-06] MEDS: pyridOXINE 50 MG (B6) TAB PO SCH (20:03)
[2023-05-07] MEDS: Ventolin HFA Inhaler 60 PUFF INHALER INH SCH ×6 (02:10→23:30)
[2023-05-07] MEDS: Benzonatate 100 MG CAP PO PRN (03:26)
[2023-05-07 04:56] LABS: #Monocytes 0.4 10x3/uL (0.0-1.1); #Neutrophils 11.9 10x3/uL (1.5-8.4); %Basophils 0.2 % (0.0-2.0); %Eosinophils 0.2 % (0.0-6.0); %Lymphocytes 3.2 % (18.0-47.0); %Monocytes 2.9 % (0.0-10.0); %Neutrophils 92.3 % (40.0-75.0); Hematocrit 36.7 % (38.8-50.0); Hemoglobin 12.8 g/dL (13.5-17.5); Mean Corpuscular HGB CONC 34.9 g/dL (32.0-36.0); Mean Corpuscular Hemoglobin 27.1 pg (27.0-33.0); Mean Corpuscular Volume 77.6 fl (81.2-95.1); Mean Platelet Volume 9.3 fl (7.4-10.4); Platelet Count 512 10x3/uL (150-450); Red Blood Cell (RBC) Count 4.73 10x6/uL (4.32-5.72); White Blood Cell (WBC) Count 12.9 10x3/uL (3.5-10.5)
[2023-05-07 05:06] LABS: Phosphorus 2.9 mg/dL (2.3-4.7)
[2023-05-07 05:09] LABS: Anion Gap 13 mmol/L (10-20); BUN (Urea Nitrogen) 27 mg/dL (8.9-20.6); CRP (Inflammatory) Less than 0.50 mg/dL (= or < 0.5); Calc. Creatinine Clearance 96 mL/min (70-130); Carbon Dioxide 21 mmol/L (22-29); Chloride 98 mmol/L (98-107); Estimated GFR 111; Glucose 98 mg/dL (70-105); Magnesium 1.4 mg/dL (1.6-2.6); Potassium 4.3 mmol/L (3.5-5.1); Sodium 128 mmol/L (136-145)
[2023-05-07] MEDS: SULFAMETHOXAZOLE IVPB SCH ×3 (06:47→22:07)
[2023-05-07] MEDS: DEXTROSE 5% IVPB SCH ×3 (06:47→22:07)
[2023-05-07] MEDS: WATER IVPB SCH ×3 (06:47→22:07)
[2023-05-07] MEDS: TRIMETHOPRIM IVPB SCH ×3 (06:47→22:07)
[2023-05-07] MEDS: Mometasone/Formoterol 200/5 60 PUFF INH SCH ×2 (06:55→20:25)
[2023-05-07] MEDS: Nystatin 500,000 UNITS/5 ML UDCUP SSW SCH ×4 (08:58→20:40)
[2023-05-07] MEDS: Enoxaparin 40 MG (0.4 mL) SYRINGE SC SCH (08:58)
[2023-05-07] MEDS: predniSONE 20 MG TAB PO SCH ×2 (08:58→20:41)
[2023-05-07] MEDS: Famotidine 20 MG TAB PO SCH ×2 (08:58→20:41)
[2023-05-07] MEDS: Sodium Chloride 1 GM TAB PO SCH ×3 (08:58→20:42)
[2023-05-07] MEDS: Gabapentin 100 MG CAP PO SCH ×2 (08:58→20:40)
[2023-05-07] MEDS: Lopinavir/Ritonavir 200-50mg TAB PO SCH ×2 (08:59→20:41)
[2023-05-07] MEDS: Emtricitabine/Tenofovir 200-300 MG TAB PO SCH (08:59)
[2023-05-07] MEDS ORDERED: Sodium Phosphate 30 MMOL in Sodium Chloride 0.9% 250 ML 250 ML IVPB SCH (10:00)
[2023-05-07] MEDS: Multivit, Therapeutic 1 TAB PO SCH (20:41)
[2023-05-07] MEDS: Cyanocobalamin (Vitamin B-12) 1,000 MCG TAB PO SCH (20:41)
[2023-05-07] MEDS: pyridOXINE 50 MG (B6) TAB PO SCH (20:41)
[2023-05-07] MEDS: Folic Acid 1 MG TAB PO SCH (20:41)
[2023-05-08] MEDS: Ventolin HFA Inhaler 60 PUFF INHALER INH SCH ×5 (02:50→20:50)
[2023-05-08 03:07] LABS: #Monocytes 0.6 10x3/uL (0.0-1.1); #Neutrophils 9.1 10x3/uL (1.5-8.4); %Basophils 0.2 % (0.0-2.0); %Eosinophils 0.3 % (0.0-6.0); %Lymphocytes 3.5 % (18.0-47.0); %Monocytes 5.6 % (0.0-10.0); %Neutrophils 89.3 % (40.0-75.0); Hematocrit 34.5 % (38.8-50.0); Hemoglobin 11.8 g/dL (13.5-17.5); Mean Corpuscular HGB CONC 34.2 g/dL (32.0-36.0); Mean Corpuscular Hemoglobin 26.6 pg (27.0-33.0); Mean Corpuscular Volume 77.9 fl (81.2-95.1); Mean Platelet Volume 9.4 fl (7.4-10.4); Platelet Count 481 10x3/uL (150-450); RBC Distribution Width 16.3 % (11.5-14.5); Red Blood Cell (RBC) Count 4.43 10x6/uL (4.32-5.72); White Blood Cell (WBC) Count 10.2 10x3/uL (3.5-10.5)
[2023-05-08 04:36] LABS: Anion Gap 13 mmol/L (10-20); BUN (Urea Nitrogen) 27 mg/dL (8.9-20.6); Calc. Creatinine Clearance 94 mL/min (70-130); Calcium 8.6 mg/dL (7.8-10.44); Carbon Dioxide 19 mmol/L (22-29); Chloride 101 mmol/L (98-107); Estimated GFR 110; Glucose 115 mg/dL (70-105); Potassium 4.1 mmol/L (3.5-5.1); Sodium 129 mmol/L (136-145)
[2023-05-08 04:40] LABS: CRP (Inflammatory) Less than 0.50 mg/dL (= or < 0.5)
[2023-05-08] MEDS: DEXTROSE 5% IVPB SCH ×3 (05:26→21:06)
[2023-05-08] MEDS: WATER IVPB SCH ×3 (05:26→21:06)
[2023-05-08] MEDS: SULFAMETHOXAZOLE IVPB SCH ×3 (05:26→21:06)
[2023-05-08] MEDS: TRIMETHOPRIM IVPB SCH ×3 (05:26→21:06)
[2023-05-08] MEDS: Emtricitabine/Tenofovir 200-300 MG TAB PO SCH (07:40)
[2023-05-08] MEDS: Gabapentin 100 MG CAP PO SCH ×2 (07:41→20:42)
[2023-05-08] MEDS: Famotidine 20 MG TAB PO SCH ×2 (07:41→20:41)
[2023-05-08] MEDS: Enoxaparin 40 MG (0.4 mL) SYRINGE SC SCH (07:41)
[2023-05-08] MEDS: Lopinavir/Ritonavir 200-50mg TAB PO SCH ×2 (07:42→20:44)
[2023-05-08] MEDS: Nystatin 500,000 UNITS/5 ML UDCUP SSW SCH ×4 (07:42→21:05)
[2023-05-08] MEDS: predniSONE 20 MG TAB PO SCH ×2 (07:42→20:41)
[2023-05-08] MEDS: Sodium Chloride 1 GM TAB PO SCH ×3 (07:43→20:42)
[2023-05-08] MEDS: Mometasone/Formoterol 200/5 60 PUFF INH SCH ×2 (07:56→20:50)
[2023-05-08] MEDS: Sodium Chloride 0.9% 1,000 ML IV SCH (13:54)
[2023-05-08] MEDS: pyridOXINE 50 MG (B6) TAB PO SCH (20:41)
[2023-05-08] MEDS: Multivit, Therapeutic 1 TAB PO SCH (20:42)
[2023-05-08] MEDS: Folic Acid 1 MG TAB PO SCH (20:42)
[2023-05-08] MEDS: Cyanocobalamin (Vitamin B-12) 1,000 MCG TAB PO SCH (20:43)
[2023-05-09] MEDS: Ventolin HFA Inhaler 60 PUFF INHALER INH SCH ×7 (00:10→22:25)
[2023-05-09 03:16] LABS: #Monocytes 0.5 10x3/uL (0.0-1.1); %Basophils 0.1 % (0.0-2.0); %Eosinophils 0.2 % (0.0-6.0); %Lymphocytes 2.7 % (18.0-47.0); %Monocytes 4.1 % (0.0-10.0); %Neutrophils 91.4 % (40.0-75.0); Hematocrit 32.7 % (38.8-50.0); Hemoglobin 11.2 g/dL (13.5-17.5); Mean Corpuscular HGB CONC 34.3 g/dL (32.0-36.0); Mean Corpuscular Hemoglobin 26.8 pg (27.0-33.0); Mean Corpuscular Volume 78.2 fl (81.2-95.1); Mean Platelet Volume 9.1 fl (7.4-10.4); Platelet Count 433 10x3/uL (150-450); Red Blood Cell (RBC) Count 4.18 10x6/uL (4.32-5.72); White Blood Cell (WBC) Count 12.1 10x3/uL (3.5-10.5)
[2023-05-09 03:35] LABS: Anion Gap 14 mmol/L (10-20); BUN (Urea Nitrogen) 28 mg/dL (8.9-20.6); CRP (Inflammatory) Less than 0.50 mg/dL (= or < 0.5); Calc. Creatinine Clearance 99 mL/min (70-130); Calcium 8.5 mg/dL (7.8-10.44); Carbon Dioxide 17 mmol/L (22-29); Chloride 102 mmol/L (98-107); Estimated GFR 112; Glucose 110 mg/dL (70-105); Magnesium 1.2 mg/dL (1.6-2.6); Potassium 4.4 mmol/L (3.5-5.1); Sodium 129 mmol/L (136-145)
[2023-05-09 03:39] LABS: Phosphorus 2.3 mg/dL (2.3-4.7)
[2023-05-09] MEDS: Sodium Chloride 0.9% 1,000 ML IV SCH ×3 (04:10→21:56)
[2023-05-09] MEDS: DEXTROSE 5% IVPB SCH ×3 (06:18→21:58)
[2023-05-09] MEDS: WATER IVPB SCH ×3 (06:18→21:58)
[2023-05-09] MEDS: SULFAMETHOXAZOLE IVPB SCH ×3 (06:18→21:58)
[2023-05-09] MEDS: TRIMETHOPRIM IVPB SCH ×3 (06:18→21:58)
[2023-05-09] MEDS: Mometasone/Formoterol 200/5 60 PUFF INH SCH ×2 (07:09→18:45)
[2023-05-09] MEDS: Famotidine 20 MG TAB PO SCH ×2 (07:56→21:56)
[2023-05-09] MEDS: predniSONE 20 MG TAB PO SCH ×2 (07:56→21:56)
[2023-05-09] MEDS: Lopinavir/Ritonavir 200-50mg TAB PO SCH ×2 (07:57→21:57)
[2023-05-09] MEDS: Emtricitabine/Tenofovir 200-300 MG TAB PO SCH (07:58)
[2023-05-09] MEDS: Gabapentin 100 MG CAP PO SCH ×2 (07:58→21:57)
[2023-05-09] MEDS: Enoxaparin 40 MG (0.4 mL) SYRINGE SC SCH (07:59)
[2023-05-09] MEDS: Nystatin 500,000 UNITS/5 ML UDCUP SSW SCH ×4 (08:00→21:56)
[2023-05-09] MEDS: Sodium Chloride 1 GM TAB PO SCH ×3 (08:00→21:59)
[2023-05-09] MEDS ORDERED: Magnesium Sulfate 4 GM in Sodium Chloride 0.9% 250 ML 250 ML IVPB SCH (09:45)
[2023-05-09] MEDS: Magnesium 2 GM/50 ML(in water) 2 GM in Premix 1 BAG IVPB SCH ×2 (09:58→10:56)
[2023-05-09] MEDS: Cyanocobalamin (Vitamin B-12) 1,000 MCG TAB PO SCH (21:56)
[2023-05-09] MEDS: Multivit, Therapeutic 1 TAB PO SCH (21:57)
[2023-05-09] MEDS: Benzonatate 100 MG CAP PO PRN (21:57)
[2023-05-09] MEDS: pyridOXINE 50 MG (B6) TAB PO SCH (21:57)
[2023-05-09] MEDS: Folic Acid 1 MG TAB PO SCH (21:59)
[2023-05-10] MEDS: Ventolin HFA Inhaler 60 PUFF INHALER INH SCH ×6 (01:35→22:35)
[2023-05-10] MEDS: Benzonatate 100 MG CAP PO PRN (02:45)
[2023-05-10] MEDS: DEXTROSE 5% IVPB SCH ×3 (05:54→21:49)
[2023-05-10] MEDS: WATER IVPB SCH ×3 (05:54→21:49)
[2023-05-10] MEDS: SULFAMETHOXAZOLE IVPB SCH ×3 (05:54→21:49)
[2023-05-10] MEDS: TRIMETHOPRIM IVPB SCH ×3 (05:54→21:49)
[2023-05-10] MEDS: Sodium Chloride 0.9% 1,000 ML IV SCH ×3 (06:14→18:00)
[2023-05-10] MEDS: Mometasone/Formoterol 200/5 60 PUFF INH SCH ×3 (07:10→22:35)
[2023-05-10 07:59] LABS: #Monocytes 0.5 10x3/uL (0.0-1.1); #Neutrophils 9.4 10x3/uL (1.5-8.4); %Basophils 0.2 % (0.0-2.0); %Eosinophils 0.2 % (0.0-6.0); %Lymphocytes 4.7 % (18.0-47.0); %Neutrophils 87.9 % (40.0-75.0); Hematocrit 35.7 % (38.8-50.0); Mean Corpuscular HGB CONC 33.6 g/dL (32.0-36.0); Mean Corpuscular Hemoglobin 26.7 pg (27.0-33.0); Mean Corpuscular Volume 79.5 fl (81.2-95.1); Mean Platelet Volume 9.1 fl (7.4-10.4); Platelet Count 457 10x3/uL (150-450); RBC Distribution Width 17.7 % (11.5-14.5); Red Blood Cell (RBC) Count 4.49 10x6/uL (4.32-5.72); White Blood Cell (WBC) Count 10.8 10x3/uL (3.5-10.5)
[2023-05-10 08:15] LABS: Anion Gap 12 mmol/L (10-20); BUN (Urea Nitrogen) 25 mg/dL (8.9-20.6); Calc. Creatinine Clearance 110 mL/min (70-130); Calcium 8.4 mg/dL (7.8-10.44); Carbon Dioxide 18 mmol/L (22-29); Chloride 103 mmol/L (98-107); Estimated GFR 114; Glucose 110 mg/dL (70-105); Magnesium 1.5 mg/dL (1.6-2.6); Potassium 4.3 mmol/L (3.5-5.1); Sodium 129 mmol/L (136-145)
[2023-05-10 08:18] LABS: Phosphorus 2.2 mg/dL (2.3-4.7)
[2023-05-10] MEDS: Enoxaparin 40 MG (0.4 mL) SYRINGE SC SCH (09:17)
[2023-05-10] MEDS: Lopinavir/Ritonavir 200-50mg TAB PO SCH ×2 (09:17→21:46)
[2023-05-10] MEDS: Nystatin 500,000 UNITS/5 ML UDCUP SSW SCH ×4 (09:17→21:44)
[2023-05-10] MEDS: Sodium Chloride 1 GM TAB PO SCH ×3 (09:17→21:45)
[2023-05-10] MEDS: Gabapentin 100 MG CAP PO SCH ×2 (09:18→21:45)
[2023-05-10] MEDS: Famotidine 20 MG TAB PO SCH ×2 (09:18→21:44)
[2023-05-10] MEDS ORDERED: predniSONE 20 MG TAB PO SCH (10:00)
[2023-05-10] MEDS ORDERED: Sodium Phosphate 30 MMOL in Sodium Chloride 0.9% 250 ML 250 ML IVPB SCH (10:00)
[2023-05-10] MEDS: Emtricitabine/Tenofovir 200-300 MG TAB PO SCH (10:12)
[2023-05-10] MEDS: Magnesium 2 GM/50 ML(in water) 2 GM in Premix 1 BAG IVPB SCH ×2 (10:14→12:28)
[2023-05-10] MEDS: predniSONE 20 MG TAB PO SCH (11:45)
[2023-05-10] MEDS: Folic Acid 1 MG TAB PO SCH (21:44)
[2023-05-10] MEDS: Multivit, Therapeutic 1 TAB PO SCH (21:44)
[2023-05-10] MEDS: Cyanocobalamin (Vitamin B-12) 1,000 MCG TAB PO SCH (21:44)
[2023-05-10] MEDS: pyridOXINE 50 MG (B6) TAB PO SCH (21:45)
[2023-05-11] MEDS: Ventolin HFA Inhaler 60 PUFF INHALER INH SCH ×6 (02:15→23:02)
[2023-05-11 04:51] VITALS: BMI 18.0
[2023-05-11] MEDS: TRIMETHOPRIM IVPB SCH ×2 (05:24→14:35)
[2023-05-11] MEDS: DEXTROSE 5% IVPB SCH ×2 (05:24→14:35)
[2023-05-11] MEDS: WATER IVPB SCH ×2 (05:24→14:35)
[2023-05-11] MEDS: Sodium Chloride 0.9% 1,000 ML IV SCH ×3 (05:24→16:30)
[2023-05-11] MEDS: SULFAMETHOXAZOLE IVPB SCH ×2 (05:24→14:35)
[2023-05-11 06:11] LABS: #Basophils 0.1 10x3/uL (0.0-0.2); #Eosinphils 0.1 10x3/uL (0.0-0.5); #Monocytes 0.7 10x3/uL (0.0-1.1); #Neutrophils 9.2 10x3/uL (1.5-8.4); %Basophils 0.5 % (0.0-2.0); %Eosinophils 0.8 % (0.0-6.0); %Lymphocytes 7.2 % (18.0-47.0); %Monocytes 6.2 % (0.0-10.0); %Neutrophils 82.4 % (40.0-75.0); Hematocrit 33.6 % (38.8-50.0); Hemoglobin 11.6 g/dL (13.5-17.5); Mean Corpuscular HGB CONC 34.5 g/dL (32.0-36.0); Mean Corpuscular Hemoglobin 27.4 pg (27.0-33.0); Mean Corpuscular Volume 79.2 fl (81.2-95.1); Mean Platelet Volume 9.1 fl (7.4-10.4); Platelet Count 401 10x3/uL (150-450); RBC Distribution Width 18.4 % (11.5-14.5); Red Blood Cell (RBC) Count 4.24 10x6/uL (4.32-5.72); White Blood Cell (WBC) Count 11.1 10x3/uL (3.5-10.5)
[2023-05-11] MEDS: Mometasone/Formoterol 200/5 60 PUFF INH SCH (07:50)
[2023-05-11 08:30] LABS: Anion Gap 13 mmol/L (10-20); BUN (Urea Nitrogen) 25 mg/dL (8.9-20.6); Calc. Creatinine Clearance 114 mL/min (70-130); Calcium 8.1 mg/dL (7.8-10.44); Carbon Dioxide 14 mmol/L (22-29); Chloride 106 mmol/L (98-107); Estimated GFR 115; Glucose 96 mg/dL (70-105); Magnesium 1.5 mg/dL (1.6-2.6); Potassium 5.2 mmol/L (3.5-5.1); Sodium 128 mmol/L (136-145)
[2023-05-11 08:49] LABS: Phosphorus 2.1 mg/dL (2.3-4.7)
[2023-05-11] MEDS: Famotidine 20 MG TAB PO SCH ×2 (10:12→21:14)
[2023-05-11] MEDS: predniSONE 20 MG TAB PO SCH (10:12)
[2023-05-11] MEDS: Enoxaparin 40 MG (0.4 mL) SYRINGE SC SCH (10:12)
[2023-05-11] MEDS: Sodium Chloride 1 GM TAB PO SCH ×3 (10:12→21:13)
[2023-05-11] MEDS: Nystatin 500,000 UNITS/5 ML UDCUP SSW SCH ×4 (10:13→21:13)
[2023-05-11] MEDS: Emtricitabine/Tenofovir 200-300 MG TAB PO SCH (10:13)
[2023-05-11] MEDS: Lopinavir/Ritonavir 200-50mg TAB PO SCH ×2 (10:13→21:14)
[2023-05-11] MEDS: Gabapentin 100 MG CAP PO SCH ×2 (10:13→21:14)
[2023-05-11] MEDS: Sulfameth/Trimethoprim DS 800-160mg TAB PO SCH (21:13)
[2023-05-11] MEDS: Folic Acid 1 MG TAB PO SCH (21:14)
[2023-05-11] MEDS: Cyanocobalamin (Vitamin B-12) 1,000 MCG TAB PO SCH (21:14)
[2023-05-11] MEDS: Multivit, Therapeutic 1 TAB PO SCH (21:14)
[2023-05-11] MEDS: pyridOXINE 50 MG (B6) TAB PO SCH (21:15)
[2023-05-12] MEDS: Ventolin HFA Inhaler 60 PUFF INHALER INH SCH ×6 (01:55→23:08)
[2023-05-12 03:59] LABS: #Basophils 0.1 10x3/uL (0.0-0.2); #Eosinphils 0.1 10x3/uL (0.0-0.5); #Monocytes 0.6 10x3/uL (0.0-1.1); #Neutrophils 7.9 10x3/uL (1.5-8.4); %Basophils 0.6 % (0.0-2.0); %Eosinophils 0.7 % (0.0-6.0); %Lymphocytes 6.7 % (18.0-47.0); %Monocytes 5.9 % (0.0-10.0); %Neutrophils 83.1 % (40.0-75.0); Hematocrit 35.8 % (38.8-50.0); Mean Corpuscular HGB CONC 33.5 g/dL (32.0-36.0); Mean Corpuscular Hemoglobin 26.3 pg (27.0-33.0); Mean Corpuscular Volume 78.5 fl (81.2-95.1); Mean Platelet Volume 8.8 fl (7.4-10.4); Platelet Count 381 10x3/uL (150-450); RBC Distribution Width 19.1 % (11.5-14.5); Red Blood Cell (RBC) Count 4.56 10x6/uL (4.32-5.72); White Blood Cell (WBC) Count 9.6 10x3/uL (3.5-10.5)
[2023-05-12 04:11] LABS: Anion Gap 12 mmol/L (10-20); BUN (Urea Nitrogen) 24 mg/dL (8.9-20.6); Calc. Creatinine Clearance 117 mL/min (70-130); Calcium 8.6 mg/dL (7.8-10.44); Carbon Dioxide 22 mmol/L (22-29); Chloride 101 mmol/L (98-107); Estimated GFR 116; Glucose 77 mg/dL (70-105); Potassium 4.4 mmol/L (3.5-5.1); Sodium 131 mmol/L (136-145)
[2023-05-12] MEDS: Benzonatate 100 MG CAP PO PRN (04:42)
[2023-05-12] MEDS: Sodium Chloride 0.9% 1,000 ML IV SCH ×4 (05:33→23:17)
[2023-05-12] MEDS: Mometasone/Formoterol 200/5 60 PUFF INH SCH ×2 (06:10→19:22)
[2023-05-12] MEDS: Nystatin 500,000 UNITS/5 ML UDCUP SSW SCH ×4 (08:29→21:47)
[2023-05-12] MEDS: Enoxaparin 40 MG (0.4 mL) SYRINGE SC SCH (08:29)
[2023-05-12] MEDS: predniSONE 20 MG TAB PO SCH (08:29)
[2023-05-12] MEDS: Sulfameth/Trimethoprim DS 800-160mg TAB PO SCH ×3 (08:29→21:48)
[2023-05-12] MEDS: Famotidine 20 MG TAB PO SCH ×2 (08:30→21:47)
[2023-05-12] MEDS: Emtricitabine/Tenofovir 200-300 MG TAB PO SCH (08:30)
[2023-05-12] MEDS: Gabapentin 100 MG CAP PO SCH ×2 (08:30→21:47)
[2023-05-12] MEDS: Lopinavir/Ritonavir 200-50mg TAB PO SCH ×2 (08:30→21:46)
[2023-05-12] MEDS: Sodium Chloride 1 GM TAB PO SCH ×3 (08:38→21:49)
[2023-05-12 09:29] LABS: Magnesium 1.3 mg/dL (1.6-2.6); Phosphorus 2.3 mg/dL (2.3-4.7)
[2023-05-12] MEDS: Cyanocobalamin (Vitamin B-12) 1,000 MCG TAB PO SCH (21:48)
[2023-05-12] MEDS: Multivit, Therapeutic 1 TAB PO SCH (21:48)
[2023-05-12] MEDS: Folic Acid 1 MG TAB PO SCH (21:48)
[2023-05-12] MEDS: pyridOXINE 50 MG (B6) TAB PO SCH (21:48)
[2023-05-12] MEDS ORDERED: Magnesium 2 GM/50 ML(in water) 2 GM in Premix 1 BAG IVPB SCH (23:30)
[2023-05-13] MEDS: Ventolin HFA Inhaler 60 PUFF INHALER INH SCH ×4 (01:46→18:45)
[2023-05-13 05:48] LABS: #Basophils 0.1 10x3/uL (0.0-0.2); #Eosinphils 0.1 10x3/uL (0.0-0.5); #Monocytes 0.5 10x3/uL (0.0-1.1); #Neutrophils 6.9 10x3/uL (1.5-8.4); %Basophils 0.7 % (0.0-2.0); %Eosinophils 0.9 % (0.0-6.0); %Neutrophils 81.6 % (40.0-75.0); Hematocrit 36.7 % (38.8-50.0); Hemoglobin 12.2 g/dL (13.5-17.5); Mean Corpuscular HGB CONC 33.2 g/dL (32.0-36.0); Mean Corpuscular Hemoglobin 26.5 pg (27.0-33.0); Mean Corpuscular Volume 79.8 fl (81.2-95.1); Mean Platelet Volume 8.6 fl (7.4-10.4); Platelet Count 369 10x3/uL (150-450); RBC Distribution Width 19.6 % (11.5-14.5); White Blood Cell (WBC) Count 8.5 10x3/uL (3.5-10.5)
[2023-05-13 05:58] LABS: Anion Gap 13 mmol/L (10-20); BUN (Urea Nitrogen) 28 mg/dL (8.9-20.6); Calc. Creatinine Clearance 104 mL/min (70-130); Calcium 8.7 mg/dL (7.8-10.44); Carbon Dioxide 23 mmol/L (22-29); Chloride 102 mmol/L (98-107); Estimated GFR 112; Glucose 76 mg/dL (70-105); Magnesium 1.8 mg/dL (1.6-2.6); Potassium 4.7 mmol/L (3.5-5.1); Sodium 133 mmol/L (136-145)
[2023-05-13 05:59] LABS: Phosphorus 2.4 mg/dL (2.3-4.7)
[2023-05-13] MEDS: Mometasone/Formoterol 200/5 60 PUFF INH SCH ×2 (06:35→18:45)
[2023-05-13] MEDS: Lopinavir/Ritonavir 200-50mg TAB PO SCH (08:26)
[2023-05-13] MEDS: Sodium Chloride 1 GM TAB PO SCH ×2 (08:27→15:19)
[2023-05-13] MEDS: Gabapentin 100 MG CAP PO SCH (08:27)
[2023-05-13] MEDS: Enoxaparin 40 MG (0.4 mL) SYRINGE SC SCH (08:27)
[2023-05-13] MEDS: Nystatin 500,000 UNITS/5 ML UDCUP SSW SCH ×3 (08:27→19:41)
[2023-05-13] MEDS: Sulfameth/Trimethoprim DS 800-160mg TAB PO SCH ×2 (08:28→15:19)
[2023-05-13] MEDS: predniSONE 20 MG TAB PO SCH (08:29)
[2023-05-13] MEDS: Famotidine 20 MG TAB PO SCH (08:29)
[2023-05-13] MEDS: Sodium Chloride 0.9% 1,000 ML IV SCH (08:30)
[2023-05-13] MEDS: Emtricitabine/Tenofovir 200-300 MG TAB PO SCH (08:35)
[2023-05-13 18:45] VITALS: BP 125/77; TEMP 98
[2023-05-17] MEDS ORDERED: predniSONE 20 MG TAB PO SCH (08:00)
[2023-05-20] MEDS ORDERED: Sulfameth/Trimethoprim DS 800-160mg TAB PO SCH (09:00)
== END 2023-05-13 20:31 | disposition home or self-care (01) | DRG 974 ==
LOC: CSHTELE 16:49 → UNDOADMIN 16:49 → CSHICU 04-23 12:20 → CSHTELE 05-09 14:33
PROVIDERS: ADMIT Emergency Medicine; ATTEND Family Medicine
PROC: 3E03329 Introduction of Other Anti-infective into Peripheral Vein, Percutaneous Approach (ICD-10-PCS; principal; 2023-04-22)
PROC: 5A0955A Assistance with Respiratory Ventilation, Greater than 96 Consecutive Hours, High Flow/Velocity Cannula (ICD-10-PCS; 2023-04-27)
DX: B20 Human immunodeficiency virus [HIV] disease (principal); J96.01 Acute respiratory failure with hypoxia; A41.9 Sepsis, unspecified organism; U07.1 COVID-19; R65.20 Severe sepsis without septic shock; B59 Pneumocystosis; J12.82 Pneumonia due to coronavirus disease 2019; B37.81 Candidal esophagitis; B37.0 Candidal stomatitis; E44.0 Moderate protein-calorie malnutrition; E87.1 Hypo-osmolality and hyponatremia; E83.52 Hypercalcemia; F17.200 Nicotine dependence, unspecified, uncomplicated; Z79.899 Other long term (current) drug therapy; Z88.2 Allergy status to sulfonamides; Z88.1 Allergy status to other antibiotic agents; E87.6 Hypokalemia; E83.42 Hypomagnesemia; I10 Essential (primary) hypertension
CPT/HCPCS: 36415; 71045; 71046; 71275; 80048; 80053; 80202; 81001; 82436; 82533; 82955; 83615; 83735; 83930; 83935; 83970; 84100; 84133; 84145; 84300; 84443; 85025; 85041; 86140; 86361; 86480; 86635; 86698; 87116; 87206; 87324; 87385; 87449; 87497; 87505; 87536; 87633; 87899; 88312; 93005; 93010; 94640; 94664; 94760; 94762; J1100; J1650; J1956; J2405; J2543; J3370; J3475; J3490; J7050; J7070; J7512; Q9967